=== PATIENT | male | born 1995 | race Caucasian/White ===

== ENCOUNTER 2019-04-24 08:09 | Emergency (ER) | payer BC ==
--- NOTE | 2019-04-24 08:29 | ED ---
Bite Injury/Animal - HPI Summary HPI Summary: This patient is a 23 year old male presenting to [facility] with a chief complaint of animal bite/scratches 18 hours ago. The patient states he was out on his porch smoking a cigarette when a feral cat came up to his porch and attacked him , scratching and biting him on his arms, legs, and face. He states he had not seen this cat before and is concerned it may have been rabid. He states a Hx of PTSD from outside medical facilities. He states his scratches and bites sting to the touch. He states he is UTD on vaccinations, tdap 2 years ago. Medications reviewed, allergies noted. - History of Current Complaint Chief Complaint: EDAnimalBite Stated Complaint: BIT AND SCRATCHED BY CASIMIRO CAT PER PT Time Seen by Provider: 04/24/19 08:19 Hx Obtained From: Patient Onset of Injury: Happened hours ago Type of Bite: Animal Hx of Bite: Unprovoked Has Animal Been Immunized?: Unknown Pain Intensity: 2 Pain Scale Used: 0-10 Numeric Animal Available for Observation: No Animal Control Notified: Yes - Allergies/Home Medications Allergies/Adverse Reactions: Allergies Allergy/AdvReac Type Severity Reaction Status Date / Time latex Allergy Hives Verified 04/24/19 08:16 Home Medications: Home Medications Dextroamphetamine/Amphetamine [Amphetamine/Dextroampheta 10 mg-] 30 mg PO BID [History Confirmed 04/24/19] Dextroamphetamine/Amphetamine [Dextroamp-Amphetamine 5 mg Tab] 5 mg PO DAILY 02/02 [History Confirmed 04/24/19] Eluxadoline [Viberzi] 100 mg PO BID 04/24/19 [History Confirmed 04/24/19] Tenofovir/Emtricitab 200/300 * [Truvada 200/300 mg*] 1 tab PO DAILY 04/24/19 [ History Confirmed 04/24/19] PMH/Surg Hx/FS Hx/Imm Hx GI History: Reports: Other GI Disorders - gastritis Sensory History: Denies: Hx Legally Blind Opthamlomology History: Denies: Hx Legally Blind Infectious Disease History: No Infectious Disease History: Denies: Traveled Outside the [place] in Last 30 Days - Family History Known Family History: Positive: Other - gallstones - Social History Alcohol Use: Occasionally Hx Substance Use: Yes Substance Use Type: Reports: Marijuana Substance Use Comment - Amount & Last Used: OCCASIONALLY Hx Tobacco Use: Yes Smoking Status (MU): Smoker, Current Status Unknown Review of Systems Negative: Fever Skin: Other - Bite and scratch lacerations All Other Systems Reviewed And Are Negative: Yes Physical Exam - Summary Physical Exam Summary: Constitutional: Well-developed, Well-nourished, Alert, Cooperative Skin: Warm, Dry. Multiple scratches on the left forearm, bilateral ankles, one obvious bite param to the left ankle, possible param to the left forearm. HENT: Normocephalic; No Racoons eyes; No soto's sign; No abrasion; No contusion; No hemotympanum; No maxilla facial tenderness or instability; Dentition are smooth; No dental trauma; No trismus Eyes: EOM normal, PERRL Neck: Trachea is midline. No stridor; No JVD; No step off; No posterior cervical spine tenderness Cardio: Rhythm regular, rate normal Heart sounds normal; Intact distal pulses. Radial pulses are 2+ and symmetric. Pulmonary/Chest wall: Effort normal; Breath sounds normal; Equal chest rise; No flail segment; No rib tenderness; No sternal tenderness Abd: Soft, Appearance normal. No distension; No tenderness; No palpable pulsatile mass; No Cullens sign; No Porras-Turners sign Musculoskeletal: Full ROM and no tenderness at hips, ankles, shoulders, elbows and knees; No joint swelling; No vertebral body tenderness; No paraspinal tenderness; No step off or deformity of the spine; Pelvis is stable to lateral compression and rock Neuro: Alert, Oriented x3, Strength 5/5 all extremities. : No blood at urethral meatus Psych: Mood and affect Normal Triage Information Reviewed: Yes Vital Signs On Initial Exam: Initial Vitals Temp Pulse Resp BP Pulse Ox 98.3 F 115 20 160/107 99 04/24/19 08:16 04/24/19 08:16 04/24/19 08:16 04/24/19 08:16 04/24/19 08:16 Vital Signs Reviewed: Yes Procedures - Sedation Patient Received Moderate/Deep Sedation with Procedure: No Diagnostics - Vital Signs Vital Signs Temp Pulse Resp BP Pulse Ox 04/24/19 08:16 98.3 F 115 20 160/107 99 - Laboratory Lab Statement: Any lab studies that have been ordered have been reviewed, and results considered in the medical decision making process. Bite Injury Course/Dx - Course Course Of Treatment: Patient is here after being attacked by a feral cat. Patient already [facility] with [facility] but they did not become giving his vaccines there as she was very nervous. Patient was given the rabies vaccine and immunoglobulin. Patient was given a dose of Augmentin and discharged on Augmentin. - Diagnoses Provider Diagnosis: Animal bite Discharge ED - Sign-Out/Discharge Documenting (check all that apply): Patient Departure - Discharge - Discharge Plan Condition: Stable Disposition: HOME Prescriptions: Amoxicillin/Clavulanate TAB* [Augmentin TAB 875*] 875 mg PO BID 10 Days #20 tab Patient Education Materials: Animal Bite (ED) Referrals: [facility] [Outside] Additional Instructions: Follow up with the [facility] for follow up vaccinations. You can continue to take your home medications. - Billing Disposition and Condition Condition: STABLE Disposition: Home - Attestation Statements Document Initiated by Carmenza: Yes Documenting Venkatibe: Jc Uribe Provider For Whom Carmenza is Documenting (Include Credential): Fadi Foster MD Scribe Attestation: Jc Elmore, scribed for Fadi Foster MD on 04/24/19 at 1130. Scribe Documentation Reviewed: Yes Provider Attestation: The documentation as recorded by the Jc smith accurately reflects the service I personally performed and the decisions made by me, Fadi Foster MD Status of Scribe Document: Viewed
[2019-04-24] MEDS ORDERED: Amoxicillin/Clavulanate TAB* 875 MG PO ONE (08:32)
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
--- OUTSIDE RECORDS SUMMARY | 2019-04-24 08:55 | XMS REPORT | Continuity of Care Document ---
:1995 External Reference #:[id number] Author Name Julita Tesfaye NP Address [address] [place] [address] Care Team Providers Name Role Phone Jo Patel M.D. - Family Medicine Care Team Information Manager Ship Unavailable Sharif Brink MD - Gastroenterology Care Team Information Manager Ship Problems Active Problems Provider Date Irritable bowel syndrome with diarrhea Jo Patel M.D. Onset: 10/17/2017 Elevated blood-pressure reading without Jo Patel M.D. Onset: 10/17/2017 diagnosis of hypertension Generalized anxiety disorder Jo Patel M.D. 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 Social History Type Date Description Comments Sex Unknown Tobacco Use Start: Unknown "Social" Smoker once in a [place], 3 times a year ETOH Use Occasional Recreational Drug Use Never Used Drugs Tobacco Use Start: Unknown Patient is a current smoker, smokes some days Smoking Status Reviewed: 03/10/19 Patient is a current smoker, smokes some days Allergies, Adverse Reactions, Alerts Active Allergies Reaction Severity Comments Date NKDA 02/12/2017 Latex 03/10/2019 Medications Active Medications SIG Qnty Indications Ordering Provider Date Adderall 1 by mouth every 30tabs F90.2 Julita Kiran 09/09/2018 5mg Tablets day as needed Tesfaye, DIETARY SERVICES MANAGER Truvada 1 tab by mouth 30tabs Z11.3 Julita Kiran 09/02/2018 200-300mg every day Tesfaye, DIETARY SERVICES MANAGER Tablets Wrist Brace wear wrist splints 2units M25.539 Julita Kiran 03/05/2018 Misc while performing Tesfaye, DIETARY SERVICES MANAGER repetitive motions Adderall XR 1 by mouth every 30caps F90.0 Julita Kiran 09/11/2017 10mg Caps day Tesfaye, DIETARY SERVICES MANAGER ER 24HR Propranolol HCL 1 tab 2-3 times a 90tabs Juliat Qiana 20mg day Tesfaye, DIETARY SERVICES MANAGER Tablets Duloxetine HCL 1 by mouth by 60caps Alda 60mg mouth twice a day MARISSA WynnP Ching Akins Alprazolam take one tablet 30tabs Julita Qiana 1mg two times daily as Tesfaye, DIETARY SERVICES MANAGER Tablets needed. max. daily dose: 2 tabs. Viberzi 1 po twice daily Unknown 100mg Tablets Flonase Allergy 1 spray to each Unknown Relief nostril every day 50mcg/Act Suspension Vitamin D3 1 caapsule by Unknown [id number] mouth daily Capsules Immunizations CPT Code Status Date Vaccine Lot # [id number] Given 03/05/2018 Tdap Tetanus, W Pertussis [id number] Given 03/05/2018 Influenza Vac, Quadrivalent, Slit Virus, Im [id number] Vital Signs Date Vital Result Comment 03/10/2019 6:34pm BP Systolic 136 mmHg BP Diastolic 98 mmHg Heart Rate 92 /min Body Temperature 97.9 F Height 70 inches 5'10" Weight 212.00 lb BMI (Body Mass Index) 30.4 kg/m2 09/09/2018 9:08am BP Systolic 100 mmHg BP Diastolic 64 mmHg Heart Rate 90 /min Body Temperature 97.9 F Respiratory Rate 16 /min Height 70 inches 5'10" Weight 196.00 lb BMI (Body Mass Index) 28.1 kg/m2 Results Test Date Facility Test Result H/L Range Note Ctrach&Ngonorr Amplified Rna 12/22/2018 [facility] Source RECTAL C. trach Amplified Rna Negative Negative 1 Source RECTAL N Gonorr Amplified Rna Negative Negative 2 Ctrach&Ngonorr Amplified Rna 12/20/2018 [facility] Source ORAL C. trach Amplified Rna Negative Negative 3 Source ORAL N Gonorr Amplified Rna Negative Negative 4 Laboratory test finding 12/20/2018 [facility] Hepatitis B Surface Ag Negative Negative 5 Syphillis Igg W/Reflex RPR Negative Negative 6 GC/Chlamydia Amplified 12/20/2018 [facility] Chlamydia trachomatis Negative Negative Rna Rna Neisseria gonorrhoeae (GC) Rna Negative Negative Comprehensive Metabolic 12/20/2018 [facility](fma) Sodium 141 mEq/L 134-149 Prof Potassium 4.1 mEq/L 3.6-5.5 Chloride 103 mEq/L 94-112 Carbon Dioxide 29 mEq/L 21-32 Glucose 93 mg/dL 70-105 BUN 17 mg/dL 6-26 Creatinine 0.8 mg/dL 0.6-1.4 BUN/Creat Ratio 21.3 CALC 8.0-36.0 Calcium 9.1 mg/dL 8.6-10.2 Total Protein 6.8 g/dL 6.4-8.3 Albumin 4.6 g/dL 3.8-5.5 Globulin 2.2 g/dL 2.0-4.8 A/G Ratio 2.1 CALC 0.6-2.3 Alk. Phosphatase 88 U/L 22-95 Alt (SGPT) 69 U/L High 7-35 Ast (Sgot) 33 U/L 5-34 Total Bilirubin 0.4 mg/dL 0.2-1.3 GFR Non- >60 ml/min/1.73m^ >=60 GFR >60 ml/min/1.73m^ >=60 Laboratory test 12/20/2018 [facility] HIV 1&2 Antibody NEGATIVE Negative finding (607)- - Screen (Fma) HCV AB (Fma) NEGATIVE negative Ctrach&Ngonorr Amplified Rna 09/09/2018 [facility] Source RECTUM C. trach Amplified Rna Negative Negative 7 Source RECTUM N Gonorr Amplified Rna Negative Negative 8 1 ADDITIONAL INFORMATION This report is intended for use in clinical monitoring and management of patients. It is not intended for use in medical-legal applications. This test has been modified from the demonstrator knitting's instructions. Its performance characteristics were determined by [facility] in a manner consistent with CLIA requirements. This test has not been cleared or approved by the U.S. Food and Drug Administration. 2 ADDITIONAL INFORMATION This report is intended for use in clinical monitoring and management of patients. It is not intended for use in medical-legal applications. This test has been modified from the demonstrator knitting's instructions. Its performance characteristics were determined by [facility] in a manner consistent with CLIA requirements. This test has not been cleared or approved by the U.S. Food and Drug Administration. Test Performed by: [facility] - [address] [address] 3 ADDITIONAL INFORMATION This report is intended for use in clinical monitoring and management of patients. It is not intended for use in medical-legal applications. This test has been modified from the demonstrator knitting's instructions. Its performance characteristics were determined by [facility] in a manner consistent with CLIA requirements. This test has not been cleared or approved by the U.S. Food and Drug Administration. 4 ADDITIONAL INFORMATION This report is intended for use in clinical monitoring and management of patients. It is not intended for use in medical-legal applications. This test has been modified from the demonstrator knitting's instructions. Its performance characteristics were determined by [facility] in a manner consistent with CLIA requirements. This test has not been cleared or approved by the U.S. Food and Drug Administration. Test Performed by: [facility] - [address] [address] 5 serum,urine aptima [id number] 6 serum,urine aptima [id number] 7 ADDITIONAL INFORMATION This report is intended for use in clinical monitoring and management of patients. It is not intended for use in medical-legal applications. This test has been modified from the demonstrator knitting's instructions. Its performance characteristics were determined by [facility] in a manner consistent with CLIA requirements. This test has not been cleared or approved by the U.S. Food and Drug Administration. 8 ADDITIONAL INFORMATION This report is intended for use in clinical monitoring and management of patients. It is not intended for use in medical-legal applications. This test has been modified from the demonstrator knitting's instructions. Its performance characteristics were determined by [facility] in a manner consistent with CLIA requirements. This test has not been cleared or approved by the U.S. Food and Drug Administration. Test Performed by: [address] [address] Procedures Date Code Description Status 06/17/2015 [id number] Colonoscopy Completed Medical Devices Description No Information Available Encounters Description No Information Available Assessments Date Code Description Provider 03/10/2019 Z11.3 Encounter for screening for infections with Julita Tesfaye NP a predominantly 03/10/2019 Z11.4 Encounter for screening for human Julita Tesfaye NP immunodeficiency virus [HIV] 03/10/2019 Z11.59 Encounter for screening for other viral Julita Tesfaye NP diseases 03/10/2019 Z72.52 High risk homosexual behavior Julita Tesfaye NP 03/10/2019 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, Julita Tesfaye NP combined type 03/10/2019 F41.9 Anxiety disorder, unspecified Julita Tesfaye NP 03/10/2019 F33.0 Major depressive disorder, recurrent, mild Julita Tesfaye NP 03/10/2019 K58.0 Irritable bowel syndrome with diarrhea Julita Tesfaye NP 12/20/2018 Z11.3 Encounter for screening for infections with Julita Tesfaye NP a predominantly 12/20/2018 Z11.4 Encounter for screening for human Julita Tesfaye NP immunodeficiency virus [HIV] 12/20/2018 Z11.59 Encounter for screening for other viral Julita Tesfaye NP diseases 09/09/2018 Z72.52 High risk homosexual behavior Julita Tesfaye NP 09/09/2018 Z11.3 Encounter for screening for infections with Julita Tesfaye NP a predominantly 09/09/2018 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 as long as the tests are normal, will resume PrEPZ11.4 Encounter for screening for human immunodeficiency virus [HIV]Comments:on truvada - will recheck metabolic panel and HIVZ11.59 Encounter for screening for other viral djstwvgfJ00.52 High risk homosexual behaviorComments:PrEP if labs normalFollow up:3 months for lab visit 6 months for DIETARY SERVICES MANAGER med lbqolK25.2 Attention-deficit hyperactivity disorder, combined typeComments:Stable on current medicationsFollow up:6 tgikozB17.9 Anxiety disorder, unspecifiedComments:StableTaking medicine and going to talk therapy can get you started on the road to feeling better. It can also help you take care of your body and relationships. To help improve your condition:Get enough sleep.Eat healthy foods.Keep a regular daily schedule.Get out of the house every day.Exercise every day. Even a little bit of exercise, such as a 15- minute walk, can help.Stay away from alcohol and street drugs.Talk with family or friends when you feel nervous or frightened.Find out about different types of group activities you can join.F33.0 Major depressive disorder, recurrent, mildComments:OrwkbwJ28.0 Irritable bowel syndrome with diarrheaComments:needs follow up colonoscopy will set up with MD Eriberto we will assume care for Rona at this time until he can be set up with gastroAllComments:Medication Management Patient Understands medications he 's taking? Yes No Are there Barriers to Adherence? Yes No Has the patient been asked about herbal supplements and therapies, andOTC meds? Yes No Care Plan1. Patient has been queried about patient's goals/preferences and functional/ lifestyle goals at relevant visits. If relevant, describe: na2. Treatment goals as explained to the patient: above3. Are there barriers to meeting treatment goals? Yes No If Yes, please describe: discharged from gastro 4. Self-Management goals as described to the patient: Yes NoAs always, we strongly encourage a healthy diet and making physical activity a part of your every day life. If you have questions about how or where to start, please contact the office. Functional Status Description No Information Available Mental Status Description No Information Available Referrals Description No Information Available
[2019-04-24] MEDS ORDERED: Rabies Immune Globulin/PF 1ML* 1 ML/300 UNITS VIAL IM ONE ×2 (09:03→09:30)
[2019-04-24] MEDS ORDERED: Rabies VIRUS VACCINE (RabAvert)* 2.5 UNITS VIAL IM ONE (09:03)
[2019-04-24 10:37] VITALS: BP 148/88
== END 2019-04-24 10:24 | disposition home or self-care (01) ==
LOC: ED 08:09
DX: S91.052A Open bite, left ankle, initial encounter (principal); Z23 Encounter for immunization; F17.210 Nicotine dependence, cigarettes, uncomplicated; W55.01XA Bitten by cat, initial encounter; Y92.008 Other place in unspecified non-institutional (private) residence as the place of occurrence of the external cause; Z79.899 Other long term (current) drug therapy; Z91.040 Latex allergy status
CPT/HCPCS: 90375; 90675; 96372; 99282; A9270-GY

== ENCOUNTER 2019-04-27 16:49 | Emergency (ER) | payer BC ==
[2019-04-27] MEDS ORDERED: Rabies VIRUS VACCINE (RabAvert)* 2.5 UNITS VIAL IM ONE (16:51)
--- NOTE | 2019-04-27 16:53 | UC ---
Bite Injury/Animal HPI - HPI Summary HPI Summary: 23 y/o male presents to the urgent care requesting the second Rabbies vaccine. Pt reports he was attacked by a Farrel cat on 04/24/2019 while he was sitting in his porch smoking. He was seen here at the clinic on 04/24/2019 and given the Innmunoglobulin vaccine and first dose of Rabbies, and RX Augmetin PO. He has not started to take the antibiotic yet. He c/o only of muscle soreness He has been taking Augmetin PO and only c/o muscle soreness Pt denies fever, muscle contractions, SOB, chest pain, abdominal pain, N/V/D. - History of Current Complaint Stated Complaint: RABIES Time Seen by Provider: 04/27/19 16:51 Hx Obtained From: Patient Severity Currently: Mild Severity Initially: Severe Pain Intensity: 0 Pain Scale Used: 0-10 Numeric Onset/Duration: Sudden Onset, Lasting Days - 3 days ago, Still Present Type of Bite: Animal - Terrance cat Has Animal Been Immunized?: Unknown Character: Abrasion/Laceration Aggravating Factor(s): Other - touch Alleviating Factor(s): Rest Associated Signs And Symptoms: Positive: Negative Hx of Bite: Unprovoked Animal Available for Observation: No Animal Control Notified: Yes - Risk Factors Infection/Sepsis Risk Factors: Negative - Allergies/Home Medications Allergies/Adverse Reactions: Allergies Allergy/AdvReac Type Severity Reaction Status Date / Time latex Allergy Hives Verified 04/27/19 17:17 PMH/Surg Hx/FS Hx/Imm Hx Previously Healthy: Yes Other Psychological History: PTSD Other History Of: HIV - Surgical History Surgical History: None - Family History Known Family History: Positive: Other - gallstones Family History: kidney stones - Social History Occupation: Employed Full-time Lives: With Family Alcohol Use: Occasionally Substance Use Type: Marijuana Substance Use Comment - Amount & Last Used: OCCASIONALLY Smoking Status (MU): Smoker, Current Status Unknown - Immunization History Hx Tetanus, Diphtheria Vaccination: Yes Review of Systems All Other Systems Reviewed And Are Negative: Yes Constitutional: Positive: Negative Skin: Positive: Negative, Other - abrasion on B/L arms and legs s/p terrance cat bite Eyes: Positive: Negative ENT: Positive: Negative Respiratory: Positive: Negative Cardiovascular: Positive: Negative Gastrointestinal: Positive: Negative Genitourinary: Positive: Negative Motor: Positive: Negative Neurovascular: Positive: Negative Musculoskeletal: Positive: Negative Neurological: Positive: Negative Psychological: Positive: Negative Is Patient Immunocompromised?: No Physical Exam - Summary Physical Exam Summary: Vital Signs Reviewed: Yes General: well developed, well nourished male sitting in the examining table w/o any apparent distress. Eyes: Positive: Conjunctiva Clear - PERRLA, EOMI ENT: Positive: Normal ENT inspection, Hearing grossly normal, Pharynx normal, TMs normal Neck: Positive: Supple, Nontender, No Lymphadenopathy Respiratory: Positive: Chest nontender, Lungs clear, Normal breath sounds Cardiovascular: Positive: RRR, No Murmur, Pulses Normal Abdomen Description: Positive: Nontender, No Organomegaly, Soft. Negative: CVA Tenderness (R), CVA Tenderness (L) Bowel Sounds: Positive: Present Musculoskeletal: Positive: Strength Intact, ROM Intact, No Edema Neurological Exam: Normal Psychological Exam: Normal Skin: Positive: rashes - Scattered several cat scratches and abrasions on B/l arms, and legs, non tender to palpation. no swelling or drainage observed. Triage Information Reviewed: Yes Bite Injury Course/Dx - Course Course Of Treatment: 23 y/o male presents to the urgent care requesting the second Rabbies vaccine. Pt reports he was attacked by a Farrel cat on 04/24/2019 while he was sitting in his porch smoking. He was seen here at the clinic on 04/24/2019 and given the Innmunoglobulin vaccine and first dose of Rabbies, and RX Augmetin PO. He has not started to take the antibiotic yet. He c/o only of muscle soreness. Pt denies fever, muscle contractions, SOB, chest pain, abdominal pain, N/V/D. Hx obtained. Pt is hemodynamically stable, A&OX3, vitals:WNL. PE: multiple scratches and abrasions on both arms and legs on examination. Pt given Rabbies vaccine by the nurse which he tolerated well. Pt explained the importance to start antibiotic as soon as possible and to apply Bacitrain oint over the scratches to prevent infection. D/C instructions explained. Pt understood and agreed w/ plan of care and left clinic ambulating. - Differential Dx/Diagnosis Differential Diagnosis/HQI/PQRI: Cellulitis, Laceration, Puncture, Rabies Exposure, Superficial Infection, Deep Space Infection, Tenosynovitis Provider Diagnosis: Rabies, need for prophylactic vaccination against, Exposure to rabies, Elevated BP without diagnosis of hypertension Discharge ED - Sign-Out/Discharge Documenting (check all that apply): Patient Departure - D/C home All imaging exams completed and their final reports reviewed: No Studies - Discharge Plan Condition: Stable Disposition: HOME Patient Education Materials: Rabies Vaccine (By injection) Referrals: Jo Patel MD [Primary Care Provider] - 3 Days Additional Instructions: 1 Please apply Bacitracin oint over the wound areas, avoid sun exposure. Start taking Augmentin PO as directed to prevent infection 2- You were given second dose of Rabies vaccine Please f/u w/ health department on day 7,14 and 28 for for following doses. 3- If any signs of infection despite taking medication please return to the urgent cre or f/u w/ your PCP for further management - Billing Disposition and Condition Condition: STABLE Disposition: Home - Attestation Statements Provider Attestation: This patient was not seen by me I was available for consult Chart reviewed SHIRA
[2019-04-27 17:19] VITALS: BP 154/75
== END 2019-04-27 17:35 | disposition home or self-care (01) ==
LOC: UCEAST 16:49
DX: Z20.3 Contact with and (suspected) exposure to rabies (principal); Z23 Encounter for immunization; S40.812D Abrasion of left upper arm, subsequent encounter; S40.811D Abrasion of right upper arm, subsequent encounter; S80.812D Abrasion, left lower leg, subsequent encounter; S80.811D Abrasion, right lower leg, subsequent encounter; W55.03XD Scratched by cat, subsequent encounter; R03.0 Elevated blood-pressure reading, without diagnosis of hypertension; B20 Human immunodeficiency virus [HIV] disease; Z91.040 Latex allergy status; F17.200 Nicotine dependence, unspecified, uncomplicated
CPT/HCPCS: 90471; 90675; 99211; G0463

== ENCOUNTER 2019-05-10 19:27 | Emergency (ER) | payer BC ==
[2019-05-10] MEDS ORDERED: NS 0.9% 1000 ML** 1,000 ML IV ONE (19:42)
[2019-05-10] MEDS ORDERED: Ondansetron INJ* 2 MG/ML VIAL IV ONE (19:42)
[2019-05-10 20:14] LABS: ABS Eosinophils 0.1 10^3/ul (0-0.6); ABS Lymphocytes 2.3 10^3/ul (1.0-4.8); ABS Monocytes 0.8 10^3/ul (0-0.8); ABS Neutrophils 4.9 10^3/ul (1.5-7.7); Eosinophil % 1.1 %; Hematocrit 48 % (42-52); Hemoglobin 16.4 g/dL (14.0-18.0); Lymphocyte % 28.6 %; Mean Corpuscular HGB Conc 35 g/dL (31-36); Mean Corpuscular Hemoglobin 33 pg (27-31); Mean Corpuscular Volume 97 fL (80-94); Mean Platelet Volume 6.6 fL (7.4-10.4); Nucleated Red Blood Cells % 0.1; Platelet Count 403 10^3/uL (150-450); Red Blood Count 4.93 10^6 /uL (4.18-5.48); Red Cell Distribution Width 13 % (10-15); White Blood Count 8.2 10^3/uL (3.5-10.8)
[2019-05-10 20:24] LABS: Albumin 5.3 g/dL (3.2-5.2); Anion Gap 9 mmol/L (2-11); CO2 Carbon Dioxide 25 mmol/L (22-32); Calcium 10.7 mg/dL (8.6-10.3); Chloride 107 mmol/L (101-111); Potassium 4.2 mmol/L (3.5-5.0); Sodium 141 mmol/L (135-145)
--- NOTE | 2019-05-10 20:24 | ED ---
Complex/Multi-Sys Presentation - HPI Summary HPI Summary: Patient is a 23 y/o M presenting to [facility] with complaints of diarrhea, feeling feverish, and "twinges" at his chest. He states that he has been off of his Cymbalta for the past two weeks. Patient began to take this medication again today, 05/10/19. He states that 45 minutes after doing so, he had an episode of diarrhea. Afterwards, he felt hot and went outside to cool off. While outside, he states that he began to experience "twinges" at his chest. He called urgent care and was advised to come to ED for evaluation. Patient is feeling anxious but denies SI. PMHx of depression, PTSD, concussion, and IBS reported. He denies PSHx. Patient is a current tobacco smoker, occasionally drinks alcohol, and denies substance usage. FMHx of cancer and MS is reported. On life cycle assessment analyst , nothing is noted to aggravate/alleviate Sx. Home medications and allergies are reviewed. - History Of Current Complaint Chief Complaint: EDGeneral Time Seen by Provider: 05/10/19 19:41 Hx Obtained From: Patient Onset/Duration: Sudden Onset Timing: Intermittent, Lasting: Location: Pain At: - chest Character: Throbbing - "twinges" Aggravating Factor(s): nothing Alleviating Factor(s): nothing Associated Signs And Symptoms: Positive: Chest Pain - "twinges", Diarrhea, Other - feeling hot, temp is 96.6 F, anxiety is endorsed, SI denied. - Allergies/Home Medications Allergies/Adverse Reactions: Allergies Allergy/AdvReac Type Severity Reaction Status Date / Time latex Allergy Hives Verified 05/10/19 19:32 PMH/Surg Hx/FS Hx/Imm Hx GI History: Reports: Hx Irritable Bowel, Other GI Disorders - gastritis Sensory History: Denies: Hx Legally Blind Opthamlomology History: Denies: Hx Legally Blind Psychiatric History: Reports: Hx Depression, Hx Post Traumatic Stress Disorder - Surgical History Surgery Procedure, Year, and Place: none as of 05/10/19 - Immunization History Date of Tetanus Vaccine: 2016 Infectious Disease History: No Infectious Disease History: Denies: Traveled Outside the [place] in Last 30 Days - Family History Known Family History: Positive: Other - gallstones, cancer, MS Family History: kidney stones - Social History Alcohol Use: Occasionally Hx Substance Use: Yes Substance Use Type: Reports: None Hx Tobacco Use: Yes Smoking Status (MU): Smoker, Current Status Unknown Review of Systems Negative: Fever - feeling hot, temp is 96.6 F Positive: Chest Pain - "twinges" Positive: Diarrhea Psychological: Other - negative - SI Positive: Anxious All Other Systems Reviewed And Are Negative: Yes Physical Exam - Summary Physical Exam Summary: VITAL SIGNS: Reviewed. GENERAL: Patient is a well-developed and nourished male who is lying comfortable in the stretcher. Patient is not in any acute respiratory distress. HEAD AND FACE: No signs of trauma. No ecchymosis, hematomas or skull depressions. No sinus tenderness. EYES: PERRLA, EOMI x 2, No injected conjunctiva, no nystagmus. EARS: Hearing grossly intact. Ear canals and tympanic membranes are within normal limits. MOUTH: Oropharynx within normal limits. NECK: Supple, trachea is midline, no adenopathy, no JVD, no carotid bruit, no c- spine tenderness, neck with full ROM. CHEST: Symmetric, no tenderness at palpation. LUNGS: Clear to auscultation bilaterally. No wheezing or crackles. CVS: Regular rate and rhythm, S1 and S2 present, no murmurs or gallops appreciated. ABDOMEN: Soft, non-tender. No signs of distention. No rebound, no guarding, and no masses palpated. Bowel sounds are normal. EXTREMITIES: FROM in all major joints, no edema, no cyanosis or clubbing. NEURO: Alert and oriented x 3. No acute neurological deficits. Speech is normal and follows commands. SKIN: Dry and warm. Triage Information Reviewed: Yes Vital Signs On Initial Exam: Initial Vitals Temp Pulse Resp BP Pulse Ox 96.6 F 81 16 150/112 100 05/10/19 19:28 05/10/19 19:28 05/10/19 19:28 05/10/19 19:28 05/10/19 19:28 Vital Signs Reviewed: Yes Procedures - Sedation Patient Received Moderate/Deep Sedation with Procedure: No Diagnostics - Vital Signs Vital Signs Temp Pulse Resp BP Pulse Ox 05/10/19 20:00 76 20 100 05/10/19 19:53 69 10 141/87 96 05/10/19 19:41 73 169/112 98 05/10/19 19:40 78 95 05/10/19 19:28 96.6 F 81 16 150/112 100 - Laboratory Lab Results: Lab Results 05/10/19 Range/Units 20:07 WBC 8.2 (3.5-10.8) 10^3/uL RBC 4.93 (4.18-5.48) 10^6 /uL Hgb 16.4 (14.0-18.0) g/dL Hct 48 (42-52) % MCV 97 H (80-94) fL MCH 33 H (27-31) pg MCHC 35 (31-36) g/dL RDW 13 (10-15) % Plt Count 403 (150-450) 10^3/uL MPV 6.6 L (7.4-10.4) fL Neut % (Auto) 59.8 % Lymph % (Auto) 28.6 % [place] % (Auto) 10.1 % Eos % (Auto) 1.1 % Baso % (Auto) 0.4 % Absolute Neuts (auto) 4.9 (1.5-7.7) 10^3/ul Absolute Lymphs (auto) 2.3 (1.0-4.8) 10^3/ul Absolute Monos (auto) 0.8 (0-0.8) 10^3/ul Absolute Eos (auto) 0.1 (0-0.6) 10^3/ul Absolute Basos (auto) 0.0 (0-0.2) 10^3/ul Absolute Nucleated RBC 0.0 10^3/ul Nucleated RBC % 0.1 Result Diagrams: 05/10/19 20:07 05/10/19 20:07 Lab Statement: Any lab studies that have been ordered have been reviewed, and results considered in the medical decision making process. - EKG 1943 Cardiac Rate: NL - rate of 75 BPM EKG Rhythm: Sinus Rhythm Summary of EKG Findings: EKG showed NSR with rate of 75 BPM, no STEMI. This EKG was reviewed and interpreted by Dr. Reyes. Re-Evaluation - Re-Evaluation First Eval Re-Evaluation Time: 20:12 Change: Improved Comment: In the ED course the patient was given hydration with IV fluids and Zofran for nausea. After these medications were given the patients symptoms resolved. I discussed all the findings and test results with the patient. Patient was instructed to return to the emergency room immediately if any of the symptoms return worsens. Plan of care was discussed with the patient and understands and agrees. All questions were answered at patient satisfaction. There were no further complaints or concerns. Lung exam before discharge: CTA B/ L. Good air exchange. No wheezing or crackles heard. CVS: S1 and S2 present. No murmurs appreciated. Patient is alert and oriented x 3. Patient is hemodynamically stable. Patient will be discharged home with follow up PCP in the next 2-3 days Complex Multi-Symp Course/Dx Assessment/Plan: This patient is a 23-year-old male who presents to the emergency department with a chief complaint of having anxiety and 1 episode of diarrhea after taking one tablet of his Cymbalta. Patient takes chronically Cymbalta bit has not been taking for 2 weeks and just restarted today. Blood tests results without any significant abnormality. In the ED course the patient was given hydration with IV fluids and Zofran for nausea. After these medications were given the patients symptoms resolved. I discussed all the findings and test results with the patient. Patient was instructed to return to the emergency room immediately if any of the symptoms return worsens. Plan of care was discussed with the patient and understands and agrees. All questions were answered at patient satisfaction. There were no further complaints or concerns. Lung exam before discharge: CTA B/L. Good air exchange. No wheezing or crackles heard. CVS: S1 and S2 present. No murmurs appreciated. Patient is alert and oriented x 3. Patient is hemodynamically stable. Patient will be discharged home with follow up PCP in the next 2-3 days - Diagnoses Provider Diagnoses: Diarrhea Discharge ED - Sign-Out/Discharge Documenting (check all that apply): Patient Departure - discharge - Discharge Plan Condition: Stable Disposition: HOME Patient Education Materials: Acute Diarrhea (ED) Referrals: Jo Patel MD [Primary Care Provider] - 3 Days Additional Instructions: PLEASE RETURN TO ED FOR ANY NEW OR WORSENING SYMPTOMS. PLEASE FOLLOW UP WITH YOUR PRIMARY CARE PHYSICIAN WITHIN THREE DAYS. - Billing Disposition and Condition Condition: STABLE Disposition: Home - Attestation Statements Document Initiated by Scribe: Yes Documenting Scribe: WES GONZALEZ Provider For Whom Scribe is Documenting (Include Credential): NICK REYES MD Scribe Attestation: WES Elmore, scribed for NICK REYES MD on 05/11/19 at 1247. Scribe Documentation Reviewed: Yes Provider Attestation: The documentation as recorded by the scribe, WES GONZALEZ accurately reflects the service I personally performed and the decisions made by me, NICK REYES MD Status of Scribe Document: Viewed
[2019-05-10 20:30] LABS: ALT 86 U/L (7-52); AST 42 U/L (13-39); Albumin/Globulin Ratio 1.7 (1-3); Alkaline Phosphatase 91 U/L (34-104); BUN/Creatinine Ratio 13.1 (8-20); Blood Urea Nitrogen 11 mg/dL (6-24); C Reactive Protein < 1.00 mg/L (<8.01); EGFR African American 135.8 (>60); EGFR Non-African American 112.3 (>60); Globulin 3.2 g/dL (2-4); Glucose 94 mg/dL (70-100); Total Protein 8.5 g/dL (6.4-8.9)
[2019-05-10 20:45] LABS: Urine Appearance Cloudy; Urine Bilirubin Negative (Negative); Urine Blood Negative (Negative); Urine Color Yellow; Urine Glucose Negative (Negative); Urine Ketones Negative (Negative); Urine Nitrite Negative (Negative); Urine Protein Negative (Negative); Urine Specific Gravity 1.017 (1.010-1.030); Urine Urobilinogen Negative (Negative)
[2019-05-10 21:41] VITALS: BP 138/90
== END 2019-05-10 21:41 | disposition home or self-care (01) ==
LOC: ED 19:27
DX: R19.7 Diarrhea, unspecified (principal); F32.9 Major depressive disorder, single episode, unspecified; F43.10 Post-traumatic stress disorder, unspecified; F17.200 Nicotine dependence, unspecified, uncomplicated; Z79.899 Other long term (current) drug therapy; Z91.040 Latex allergy status
CPT/HCPCS: 36415; 80053; 81003; 83690; 85025; 86140; 93005; 96361; 96374; 99283; J2405